=== PATIENT | male | born 2000 | race Caucasian/White ===

== ENCOUNTER 2019-10-08 12:26 | Emergency (ER) | payer SELFPAY ==
[~2019-10-08] VITALS: Ht 182.9 cm; Wt 68.2 kg
[2019-10-08 12:37] VITALS: BP 126/90; TEMP 97.6
[2019-10-08] MEDS ORDERED: AMOXICILLIN 50500 MG PO (12:45)
[2019-10-08] MEDS ORDERED: PREDNISONE20 MG PO (13:51)
[2019-10-08 13:55] VITALS: PULSE 62
== END 2019-10-08 14:00 | disposition home or self-care (01) ==
LOC: COL.ER 12:26
DX: J40 Bronchitis, not specified as acute or chronic (principal); Z88.0 Allergy status to penicillin

== ENCOUNTER → 2019-11-10 | Outpatient (REF) | payer SELFPAY ==
[~2019-11-10] MED LIST: AMOXICILLIN 50500 MG PO; PREDNISONE20 MG PO
== END ==
LOC: COL.LAB 10:07 → EDSTATUS 10:13
DX: Z02.83 Encounter for blood-alcohol and blood-drug test (principal)